=== PATIENT | female | born 1935 | race Caucasian/White ===

== ENCOUNTER 2016-08-20 18:33 | Emergency (ER) | payer MEDICARE, OTHER ==
[~2016-08-20 18:33] MED LIST: ACETAMINOPHEN325 M1 PO; AGGRENOX 25 MG-1 CAP PEG; AGGRENOX 25 MG-1 CAP PO; AGGRENOX1 CAP PO; ALAVERT10 M2 GT; ATENOLOL; ATENOLOL100 M1 PEG; ATENOLOL100 MG PO; AUGMENTIN 875-1 EAC1 PO; AUGMENTIN 875-1 EAC2 PO; AUGMENTIN PO; AUGMENTIN125 MG/51 PEG; B-121000 MC2 PEG; CALCIUM; CALCIUM 600 +1 EA11 PEG; CALCIUM 600 +1 EA14 PO; CALCIUM 600+D1 EAC3 PO; CARBIDOPA-LEVO E1 EA PO; CARBIDOPA-LEVO1 EAC1 PO; CARBIDOPA-LEVO1 EAC9 PEG; CARBIDOPA/LEVODOPA; CLEOCIN HCL300 MG PO; CULTURELLE1 EAC1 PO; DOCU LIQUI50 MG/5 ML PEG; DULCOLAX10 MG PR; DUONEB 2.5-0.5MG3 M1; GENTEAL25 ML BOTH EYES; IPRAT-ALBUT 0.5-3 ML IH; IPRAT-ALBUT 0.5-3 ML NEB; JEVITY 1 CAL237 ML GT; LANSOPRAZOLE NG; METFORMIN; METFORMIN HCL500 M2 PEG; METFORMIN HCL500 M2 PO; METFORMIN HCL500 MG PO; MIRALAX17 G1 PO; MIRAPEX0.125 M1 PEG; MIRAPEX0.125 M1 PO; MIRAPEX0.125 MG PO; PATANOL5 M1 RIGHT EYE; PRAMIPEXOLE; PRAMIPEXOLE0.125 MG PO; PREVACID30 M3 PO; PROTONIX20 M2 PO; PROTONIX40 M3 PEG; REFRESH TEARS15 ML BOTH EYES; ROBAFEN100 MG/52 GT; SENNA PLUS TAB1 EAC1 PO; SENNA8.8 MG/51 GT; SINEMET 25-1001 EAC1 PO; TYLENOL325 M2 PEG; TYLENOL325 M2 PO; VESICARE10 MG PO; VITAMIN B12; VITAMIN B121000 MCG PO; VITAMIN B122500 MCG PO; VITAMIN D; VITAMIN D3400 UNIT PO; VITAMIN D35000 UNI1 PO; VITAMIN D35000 UNI2 PEG; VITAMIN D35000 UNI2 PO
[2016-08-20] MEDS ORDERED: HYDROCORTISO453.6 G4 TP (18:42)
[2016-08-20] MEDS ORDERED: MICONAZORB AF71 GM TOP (18:43)
[2016-08-20] MEDS ORDERED: ZOLOFT50 M1 GT (18:44)
[2016-08-20] MEDS ORDERED: PLAVIX75 M1 GT (18:44)
[2016-08-20] MEDS ORDERED: SINEMET 25-1001 EAC1 GT (18:46)
[2016-08-20] MEDS ORDERED: ACID CONTROL150 M2 GT (18:47)
[2016-08-20] MEDS ORDERED: NATURAL BALANCE EACH EYE (18:48)
== END 2016-08-20 20:28 ==
LOC: EDMED 18:33
PROC: 0D2DXUZ Change Feeding Device in Lower Intestinal Tract, External Approach (ICD-10-PCS; principal; 2016-08-20)
DX: Z43.1 Encounter for attention to gastrostomy (principal); E11.9 Type 2 diabetes mellitus without complications; I10 Essential (primary) hypertension; G20 Parkinson's disease; F03.90 Unspecified dementia, unspecified severity, without behavioral disturbance, psychotic disturbance, mood disturbance, and anxiety; Z90.49 Acquired absence of other specified parts of digestive tract; Z79.899 Other long term (current) drug therapy